=== PATIENT | female | born 1960 | race Caucasian/White ===

== ENCOUNTER 2019-08-30 12:02 | Emergency (ER) | payer BC ==
--- NOTE | 2019-08-30 12:36 | EDM.PDOC ---
ED HPI GENERAL MEDICAL PROBLEM - General Chief Complaint: Eye Problems Stated Complaint: EYE COMPLAINT Time Seen by Provider: 08/30/19 12:20 Source of Information: Reports: Patient History Limitations: Reports: No Limitations - History of Present Illness INITIAL COMMENTS - FREE TEXT/NARRATIVE: HISTORY AND PHYSICAL: History of present illness: She is a 58-year-old female presents to the ED today with concern of left eye pain and crusting that is worsened over the past 2 days. Patient states over the past week she has been sick with cold-like symptoms. Patient states the cold symptoms have nearly gone away but she started developing left eye pain and crusting that is worsened over the last 2 days. Patient states she has not taken anything for her symptoms. Patient denies any visual changes or change in vision. Patient does wear glasses but does not wear contacts. Patient denies fever, chills, chest pain, shortness of breath, or cough. Denies headache, neck stiff ness, change in vision, syncope, or near syncope. Denies nausea, vomiting, abdominal pain, diarrhea, constipation, or dysuria. Has not noted any blood in urine or stool. Patient has been eating and drinking appropriately. Review of systems: As per history of present illness and below otherwise all systems reviewed and negative. Past medical history: As per history of present illness and as reviewed below otherwise noncontributory. Surgical history: As per history of present illness and as reviewed below otherwise noncontributory. Social history: See social history for further information Family history: As per history of present illness and as reviewed below otherwise noncontributory. Physical exam: General: Patient is alert, oriented, and in no acute distress. Patient sitting comfortably on exam table. HEENT: Visual acuity intact. Atraumatic, normocephalic, pupils equal and reactive bilaterally, negative for conjunctival pallor or scleral icterus, the left sclera is moderately injected with crusting on the lower lid, there is a pinpoint white punctum at the base of the eyelash on the inferior eye lid with surrounding erythema and edema that mildly painful to palpation, there also is another punctum that similar in appearance that is just inferior to the other punctum lower into the inferior eyelid that mildly tender mucous membranes moist , TMs normal bilaterally, throat clear, neck supple, nontender, trachea midline. No drooling or trismus noted. No meningeal signs. No hot potato voice noted. Lungs: Clear to auscultation, breath sounds equal bilaterally, chest nontender. Heart: S1S2, regular rate and rhythm without overt murmur Abdomen: Soft, nondistended, nontender. Negative for masses or hepatosplenomegaly. Negative for costovertebral tenderness. Pelvis: Stable nontender. Genitourinary: Deferred. Rectal: Deferred. Skin: Intact, warm, dry. No lesions or rashes noted. Extremities: Atraumatic, negative for cords or calf pain. Neurovascular unremarkable. Neuro: Awake, alert, oriented. Cranial nerves II through XII unremarkable. Cerebellum unremarkable. Motor and sensory unremarkable throughout. Exam nonfocal. Notes: Discussed the importance for follow-up with an systems development manager and pcp. Voices understanding and is agreeable to plan of care. Denies any further questions or concerns at this time. Diagnostics: None Therapeutics: None Prescription: Erythromycin ophthalmic Impression: Hordeolum r/o chalazion Bacterial conjunctivitis Plan: 1. Apply warm compresses to the affected eye 5 times a day for the next 5 days. Apply medication as prescribed. 2. You can alternate ibuprofen and Tylenol as directed for pain and discomfort. 3. Follow-up with the systems development manager and your primary care provider as discussed. Return to the ED as needed and as discussed. Definitive disposition and diagnosis as appropriate pending reevaluation and review of above. 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 ED EXAM GENERAL W FULL EYE - Physical Exam Exam: See Below (See dictation) Course - Vital Signs Last Recorded V/S: Last Vital Signs Temp 97.5 F 08/30/19 12:07 Pulse 62 08/30/19 12:07 Resp 18 08/30/19 12:07 BP 138/57 L 08/30/19 12:07 Pulse Ox 99 08/30/19 12:07 Departure - Departure Time of Disposition: 12:36 Disposition: Home, Self-Care 01 Clinical Impression: Bacterial conjunctivitis Hordeolum Qualifiers: Hordeolum type: unspecified type Laterality: left Eyelid: unspecified eyelid Qualified Code(s): H00.016 - Hordeolum externum left eye, unspecified eyelid - Discharge Information Prescriptions: Erythromycin Base [Erythromycin 0.5% Ophth Oint] 1 applic OP Q4H 5 Days #1 tube Referrals: PCP,Unknown [Primary Care Provider] - Additional Instructions: The following information is given to patients seen in the emergency department who are being discharged to home. This information is to outline your options for follow-up care. We provide all patients seen in our emergency department with a follow-up referral. The need for follow-up, as well as the timing and circumstances, are variable depending upon the specifics of your emergency department visit. If you don't have a primary care physician on staff, we will provide you with a referral. We always advise you to contact your personal physician following an emergency department visit to inform them of the circumstance of the visit and for follow-up with them and/or the need for any referrals to a consulting specialist. The emergency department will also refer you to a specialist when appropriate. This referral assures that you have the opportunity for follow-up care with a specialist. All of these measure are taken in an effort to provide you with optimal care, which includes your follow-up. Under all circumstances we always encourage you to contact your private physician who remains a resource for coordinating your care. When calling for follow-up care, please make the office aware that this follow-up is from your recent emergency room visit. If for any reason you are refused follow-up, please contact the [facility] Emergency Department at and asked to speak to the emergency department charge nurse. [facility] [address] [place] [address] [facility] [address] [place] [address] 1. Apply warm compresses to the affected eye 5 times a day for the next 5 days. Apply medication as prescribed. 2. You can alternate ibuprofen and Tylenol as directed for pain and discomfort. 3. Follow-up with the systems development manager and your primary care provider as discussed. Return to the ED as needed and as discussed.
== END 2019-08-30 12:43 | disposition home or self-care (01) ==
LOC: MW.ED 12:02
DX: H10.9 Unspecified conjunctivitis (principal); H00.016 Hordeolum externum left eye, unspecified eyelid; Z91.018 Allergy to other foods; Z91.013 Allergy to seafood
CPT/HCPCS: 99282